=== PATIENT | male | born 1955 | race Caucasian/White ===

== ENCOUNTER 2021-01-15 13:47 | Emergency (ER) | payer BC, OTHER ==
[2021-01-15 14:04] VITALS: BP 123/86; PULSE 70; TEMP 98.8; BMI 37.6
[2021-01-15] MEDS ORDERED: ACETAMINOPHEN 500 MG TABLET (FP) PO ONE (14:10)
[2021-01-15] MEDS ORDERED: ACETAMINOPHEN 500 MG TABLET (FP) ONE (14:11)
== END 2021-01-15 15:45 | disposition home or self-care (01) ==
LOC: FER 13:47
DX: M25.561 Pain in right knee (principal); M79.651 Pain in right thigh; M25.511 Pain in right shoulder
CPT/HCPCS: 73030-TC-RT-FY; 73552-TC-RT-FY; 73562-TC-RT-FY; 99284-25

== ENCOUNTER 2021-03-28 08:39 | Emergency (ER) | payer OTHER ==
[2021-03-28 08:55] VITALS: BP 118/68; PULSE 63; TEMP 98; BMI 37.6
== END 2021-03-28 09:43 | disposition home or self-care (01) ==
LOC: FER 08:39
DX: S93.509A Unspecified sprain of unspecified toe(s), initial encounter (principal)
CPT/HCPCS: 73630-TC-LT; 99284-25